=== PATIENT | female | born 1995 | race Caucasian/White ===

== ENCOUNTER → 2017-01-20 | Emergency (ER) | payer OTHER ==
[2017-01-20 21:56] VITALS: BP 116/98; PULSE 105; TEMP 98.4; BMI 31.4
[2017-01-20 22:30] LABS: URINE APPEARANCE CLEAR; URINE BILIRUBIN NEGATIVE (NEGATIVE); URINE BLOOD NEGATIVE (NEGATIVE); URINE COLOR STRAW; URINE GLUCOSE (UA) NEGATIVE (NEGATIVE); URINE KETONE NEGATIVE (NEGATIVE); URINE LEUK ESTERASE NEGATIVE (NEGATIVE); URINE NITRITE NEGATIVE (NEGATIVE); URINE PROTEIN NEGATIVE (NEGATIVE); URINE UROBILINOGEN NEGATIVE E.U./dl (0.2-1.0)
== END | disposition left against medical advice (07) ==
LOC: JER 21:46
DX: Z53.21 Procedure and treatment not carried out due to patient leaving prior to being seen by health care provider (principal)
CPT/HCPCS: 81003; 84703; 99283-25